=== PATIENT | male | born 1960 | race Caucasian/White ===

== ENCOUNTER 2016-06-07 19:30 | Emergency (ER) | payer BC ==
[~2016-06-07 19:30] MED LIST: BABY81CH; FLUO10TA2; HYDR25TA6; LISI10TA4; NICO21DI4; PROZ10CA; PROZ20CA
[2016-06-07] MEDS ORDERED: KETOROLAC 30 MG/ML VIAL (J1885) As Ordered ONE (20:29)
[2016-06-07 20:46] LABS: BASO % 0.4 % (0.0-1.0); EOS # 0.2 K/mm3 (0.0-0.50); EOS % 1.4 % (0.0-3.0); LARGE UNSTAINED CELL # 0.1 K/mm3 (0.0-0.4); LARGE UNSTAINED CELL % 0.7 % (0.0-4.0); LYMPH # 1.1 K/mm3 (1.5-4.5); LYMPH % 8.5 % (24.0-44.0); MEAN CORPUSCULAR HEMOGLOBIN 29.6 pg (27.0-33.0); MEAN CORPUSCULAR HGB CONC 34.4 g/dl (32.0-36.5); MEAN CORPUSCULAR VOLUME 86.1 fl (80.0-96.0); MONO # 0.3 K/mm3 (0.0-0.8); MONO % 2.5 % (0.0-5.0); NEUTROPHILS # 11.5 K/mm3 (1.8-7.7); NEUTROPHILS % 86.5 % (36.0-66.0); PLATELET COUNT, AUTOMATED 315 k/mm3 (150-450); RED CELL DISTRIBUTION WIDTH 12.4 % (11.5-14.5); WHITE BLOOD COUNT 13.3 K/mm3 (4.0-10.0)
[2016-06-07] MEDS ORDERED: HYDROmorphone HCL 1 MG/ML SYRINGE (J1170) As Ordered ONE (20:58)
[2016-06-07 21:13] LABS: ALBUMIN 4.3 GM/DL (3.2-5.2); ALBUMIN/GLOBULIN RATIO 1.08 (1.00-1.93); ALKALINE PHOSPHATASE 98 U/L (45-117); ALT/SGPT 24 U/L (12-78); AMYLASE 305 U/L (25-115); ANION GAP 7 MEQ/L (8-16); AST/SGOT 7 U/L (15-37); BILIRUBIN,DIRECT 0.1 MG/DL (0.0-0.2); BILIRUBIN,TOTAL 0.6 MG/DL (0.2-1.0); BLOOD UREA NITROGEN 22 MG/DL (7-18); CALCIUM LEVEL 8.7 MG/DL (8.5-10.1); CARBON DIOXIDE LEVEL 27 MEQ/L (21-32); CHLORIDE LEVEL 106 MEQ/L (98-107); CREATININE FOR GFR 1.31 MG/DL (0.70-1.30); GLOMERULAR FILTRATION RATE > 60.0 (>56); GLUCOSE, FASTING 117 MG/DL (70-105); POTASSIUM SERUM 4.1 MEQ/L (3.5-5.1); SODIUM LEVEL 140 MEQ/L (136-145); TOTAL PROTEIN 8.3 GM/DL (6.4-8.2)
[2016-06-07] MEDS ORDERED: ATENOLOL 25 MG TAB As Ordered ONE (21:45)
--- NOTE | 2016-06-07 23:30 | REPUSA ---
CT of the abdomen and pelvis without contrast Clinical statement: Pain. Technique: Multiple axial CT images were obtained from the base of the lungs to the floor of the pelv is utilizing 5 mm axial slices without administration of contrast. Coronal and sagittal reconstructio ns were also obtained. No comparison is available. Findings: Chest: The visualized lung bases are clear. Abdomen: The kidneys are normal in size bilaterally. There is no evidence of hydronephrosis or nephro lithiasis. The liver, spleen, pancreas, gallbladder and adrenal glands are unremarkable. The aorta de monstrates normal caliber and contour. There is no abdominal lymphadenopathy or ascites. Pelvis: The bowel is unremarkable, with no obstructive or inflammatory changes. The appendix is graeme l. The urinary bladder is within normal limits. There is no pelvic lymphadenopathy or ascites. The ot her pelvic structures appear unremarkable. Bones: There are no suspicious osseous abnormalities seen. Impression: Unremarkable CT examination of the abdomen and pelvis.
--- NOTE | 2016-06-08 01:37 | EDDOCDS ---
Physician Documentation [facility] Name: Sathya Presley Age: 56 yrs Sex: Male : 1960 Arrival Date: 06/07/2016 Time: 19:30 Bed I Private MD: Henri Mcintyre [facility] Disposition: 06/08/16 01:18 Discharged to Home/Self Care. Impression: Low back pain. - Condition is Stable. - Prescriptions for Tramadol 50 mg Oral Tablet - take 0.5 tablet by ORAL route 4 times per day MDD: 2 tabs; 10 tablet. - Medication Reconciliation, Local Pharmacy Hours form. - Follow up: Henri Mcintyre; When: Call to arrange an appointment; Reason: Recheck today's complaints. - Problem is new. - Symptoms have improved. Historical: - Allergies: no known allergies; - Home Meds: 1. atenolol 25 mg Oral tab 1 tab once daily - PMHx: Hypertension; - PSHx: skin cancer excision; - Social history: Smoking status: Patient uses tobacco products, heavy tobacco smoker. No barriers to communication noted, The patient speaks fluent [place]. - Family history: Not pertinent. - : The pt / caregiver states he / she is not on anticoagulants. Home medication list is obtained from the patient. - Exposure Risk Screening:: None identified. Vital Signs: 06/07 19:31 BP 237 / 118; Pulse 78; Resp 20 S; Temp 97.5(O); Pulse Ox 98% on R/A; Weight 79.38 kg / dd6 175 lbs (R); Height 5 ft. 8 in. (172.72 cm) (R); 21:00 BP 213 / 104 LA Supine (auto/reg); Pulse 82 MON; Resp 22 S; Temp 99.0(TE); Pulse Ox 98% cln on R/A; Pain 8/10; 21:40 BP 196 / 100; Pulse 77; Resp 16; Pain 1/10; cz 22:49 BP 185 / 88; Pulse 71; Resp 16; Pain 1/10; cz 22:50 BP 185 / 88; Pulse 71; Resp 16; Pain 1/10; cz 06/08 01:33 BP 148 / 72; Pulse 82; Resp 18; Temp 98.3(TE); Pulse Ox 93% on R/A; Pain 0/10; cp1 06/07 19:31 Body Mass Index 26.61 (79.38 kg, 172.72 cm) dd6 MDM: 06/07 20:26 IV Saline Lock ordered. cs11 20:26 NS 0.9% 1000 ml IV at bolus once ordered. cs11 20:26 ketorolac 30 mg IVP once ordered. cs11 20:26 CBC with Diff Ordered. EDMS 20:26 MED Profile Ordered. EDMS 20:26 Liver Profile Ordered. EDMS 20:26 Urinalysis Ordered. EDMS 20:26 Urine Culture Ordered. EDMS 20:26 Lipase Ordered. EDMS 20:26 Amylase Ordered. EDMS 20:57 Dilaudid - HYDROmorphone 1 mg IVP once ordered. jun 07: Financial registration complete. zo 20:58 [facility] Payment Agreement was scanned into [employer] and attached to record. zo 21:43 CBC with Diff Reviewed. cs11 21:43 MED Profile Reviewed. cs11 21:43 Liver Profile Reviewed. cs11 21:43 Urinalysis Reviewed. cs11 21:43 Amylase Reviewed. cs11 21:43 Lipase Reviewed. cs11 21:44 Atenolol 25 mg PO once ordered. cs11 21:46 CT ABD & PELVIS: No Contrast Ordered. EDMS 06/08 01:15 CT ABD & PELVIS: No Contrast Reviewed. cs11 Administered Medications: 06/07 20:39 Drug: ketorolac 30 mg [ketorolac 30 mg/mL (1 mL) injection solution (1 mL)] Route: IVP; cz Site: right antecubital; 06/08 01:36 Follow up: Response: Pain is decreased [facility] 06/07 20:41 Drug: NS 0.9% 1000 ml [sodium chloride 0.9 % intravenous solution] Route: IV; Rate: cz bolus; Site: right antecubital; 06/08 01:36 Follow up: IV Status: Completed infusion [facility] 06/07 21:00 Drug: Dilaudid - HYDROmorphone 1 mg [hydromorphone 1 mg/mL injection syringe (1 mL)] cz Route: IVP; Site: right forearm; 21:40 Follow up: BP 196 / 100; Pulse 77 bpm; Resp 16 bpm; Pain 1/10 Adult cz 21:48 Drug: Atenolol 25 mg [atenolol 25 mg tablet (1 tabs)] Route: PO; cz 22:49 Follow up: BP 185 / 88; Pulse 71 bpm; Resp 16 bpm; Pain 05/28 Adult cz 06/08 01:36 Follow up: Response: Blood pressure is improved cp1 Signatures: Dispatcher [employer] EDMS Madsiyn Funes RN RN jan Zecher, Calvin, RN RN cz Olin, Zoeann zo Soosairaj, Rosemary, RN RN rs3 Olesya Lemus LPN LPN cp1 Judah Munguia DO DO cs11 The chart was reviewed and I authenticate all verbal orders and agree with the evaluation and treatment provided.Attachments: 06/07 20:58 [facility] Payment Agreement zo MTDD
--- NOTE | 2016-06-08 01:37 | EDDOCDS ---
Nurse's Notes [facility] Name: Sathya Presley Age: 56 yrs Sex: Male : 1960 Arrival Date: 06/07/2016 Time: 19:30 Bed I9 / 22 Private MD: Henri Mcintyre NCFM Diagnosis: Low back pain Presentation: 06/07 19:33 Presenting complaint: Patient states: bilateral flank pain, nausea since this rs3 afternoon. Acute neurological deficits are not present. Mechanism of Injury: No Mechanism of Injury. Adult Sepsis Screening: The patient does not have new or worsening altered mentation. Patient's respiratory rate is less than 22. Systolic blood pressure is greater than 100. Patient has a qSOFA score of 0- Negative Sepsis Screen. Suicide/Homicide risk assessment- the patient denies having any suicidal and/or homicidal ideations and does not present with any other emotional, behavioral or mental health complaints. 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 Transition of care: patient was not received from another setting of care. 19:33 Acuity: EDU Level 3 rs3 19:33 Method Of Arrival: Walkin/Carried/Asstd rs3 Triage Assessment: 19:35 General: Appears uncomfortable. Pain: Location: left low back and right low back. Pt rs3 Declines HIV testing. Musculoskeletal: Reports Pain is 10 out of 10 on a pain scale. Historical: - Allergies: no known allergies; - Home Meds: 1. atenolol 25 mg Oral tab 1 tab once daily - PMHx: Hypertension; - PSHx: skin cancer excision; - Social history: Smoking status: Patient uses tobacco products, heavy tobacco smoker. No barriers to communication noted, The patient speaks fluent Armenian. - Family history: Not pertinent. - : The pt / caregiver states he / she is not on anticoagulants. Home medication list is obtained from the patient. - Exposure Risk Screening:: None identified. Screenin:41 Screening information is obtained from the patient. Fall risk: No risks identified. cz Assistance ADL's: requires no assistance with activities of daily living. Abuse/DV Screen: The patient / caregiver reports he/she is: not in a situation that causes fear, pain or injury. Nutritional screening: No deficits noted. home support is adequate. 06/08 01:35 Advance Directives: Unable to assess Advance Directive status due to pt condition. cp1 Assessment: 06/07 20:41 General: alert male with bilateral flank pain nausea and vomiting. GI: Abdomen is flat, cz non- distended Bowel sounds present X 4 quads. Abd is soft X 4 quads. 21:04 Reassessment: pain continues at a 7-8/10 provider aware order received. cz 21:40 Reassessment: Patient states symptoms have improved. pt states pain much better. cz 22:18 Adult Sepsis Screening: The patient does not have new or worsening altered mentation. cz Patient's respiratory rate is less than 22. Systolic blood pressure is greater than 100. Patient has a qSOFA score of 0- Negative Sepsis Screen. 22:50 Reassessment: Patient appears in no apparent distress at this time. Patient states cz symptoms have improved. 23:26 General: Appears in no apparent distress, comfortable, Behavior is appropriate for age, jmb cooperative, Patient laying on stretcher, appears comfortable. No voiced complaints at this time. . Neurological: Level of Consciousness is awake, alert, obeys commands, Oriented to person, place, time, Speech is normal. Respiratory: Airway is patent Respiratory effort is even, unlabored, Respiratory pattern is regular, symmetrical. 06/08 00:00 General: Appears in no apparent distress, comfortable, Behavior is appropriate for age, jmb cooperative. Neurological: Level of Consciousness is awake, alert, obeys commands, Oriented to person, place, time. Respiratory: Airway is patent Respiratory effort is even, unlabored, Respiratory pattern is regular, symmetrical. Vital Signs: 06/07 19:31 BP 237 / 118; Pulse 78; Resp 20 S; Temp 97.5(O); Pulse Ox 98% on R/A; Weight 79.38 kg dd6 (R); Height 5 ft. 8 in. (172.72 cm) (R); 21:00 BP 213 / 104 LA Supine (auto/reg); Pulse 82 MON; Resp 22 S; Temp 99.0(TE); Pulse Ox 98% cln on R/A; Pain 8/10; 21:40 BP 196 / 100; Pulse 77; Resp 16; Pain 1/10; cz 22:49 BP 185 / 88; Pulse 71; Resp 16; Pain 1/10; cz 22:50 BP 185 / 88; Pulse 71; Resp 16; Pain 1/10; cz 06/08 01:33 BP 148 / 72; Pulse 82; Resp 18; Temp 98.3(TE); Pulse Ox 93% on R/A; Pain 0/10; cp1 06/07 19:31 Body Mass Index 26.61 (79.38 kg, 172.72 cm) dd6 Vitals: 06/07 19:31 Log In Time: June 07, 2016 at 19:29. dd6 ED Course: 19:31 Patient visited by Rui Olivo PCA. dd6 19:31 Henri Mcintyre is Private Physician. dd6 19:31 Patient moved to Waiting dd6 19:33 Patient moved to Pre RCE dd6 19:34 Triage Initiated rs3 19:38 Patient moved to I kmg1 20:24 Judah Munguia DO is Attending Physician. cs11 20:24 Patient visited by Judah Munguia DO. cs11 20:40 Patient visited by Olesya Lemus LPN. cp1 20:40 Amylase Sent. cp1 20:40 Lipase Sent. cp1 20:40 Urine Culture Sent. cp1 20:40 Urinalysis Sent. cp1 20:40 Liver Profile Sent. cp1 20:40 MED Profile Sent. cp1 20:40 CBC with Diff Sent. cp1 20:41 The patient / caregiver is instructed regarding the plan of care and ED course. cz 20:41 Inserted saline lock: 20 gauge in right antecubital area. No procedures done that cz require assistance. 20:58 [facility] Payment Agreement was scanned into Wik[employer] and attached to record. zo 21:01 Patient visited by Paty Nixon PCA. cln 21:48 Patient visited by Olesya Lemus LPN. cp1 22:19 Patient visited by Prateek Boyd RN. cz 22:49 Patient visited by Olesya Lemus LPN. cp1 23:27 Patient visited by Alistair John,JOANNE. brannonb 06/08 00:01 Patient visited by Alistair John RN. jmb 00:19 CT ABD & PELVIS: No Contrast Returned. EDMS 00:39 Patient visited by Olesya Lemus LPN. cp1 01:18 Henri Mcintyre is Referral Physician. cs11 01:35 Discontinued lock bleeding controlled, pressure dressing applied. cp1 Administered Medications: 06/07 20:39 Drug: ketorolac 30 mg [ketorolac 30 mg/mL (1 mL) injection solution (1 mL)] Route: IVP; cz Site: right antecubital; 06/08 01:36 Follow up: Response: Pain is decreased cp1 06/07 20:41 Drug: NS 0.9% 1000 ml [sodium chloride 0.9 % intravenous solution] Route: IV; Rate: cz bolus; Site: right antecubital; 06/08 01:36 Follow up: IV Status: Completed infusion cp1 06/07 21:00 Drug: Dilaudid - HYDROmorphone 1 mg [hydromorphone 1 mg/mL injection syringe (1 mL)] cz Route: IVP; Site: right forearm; 21:40 Follow up: BP 196 / 100; Pulse 77 bpm; Resp 16 bpm; Pain 05/28 Adult cz 21:48 Drug: Atenolol 25 mg [atenolol 25 mg tablet (1 tabs)] Route: PO; cz 22:49 Follow up: BP 185 / 88; Pulse 71 bpm; Resp 16 bpm; Pain 05/28 Adult cz 06/08 01:36 Follow up: Response: Blood pressure is improved cp1 Order Results: Lab Order: CBC with Diff; SPEC'M 06/07/16 20:32 Test: WHITE BLOOD COUNT; Value: 13.3; Range: 4.0-10.0; Abnormal: Above high normal; Units: K/mm3; Status: F Test: RED BLOOD COUNT; Value: 5.25; Range: 4.30-6.10; Units: M/mm3; Status: F Test: HEMOGLOBIN; Value: 15.6; Range: 14.0-18.0; Units: g/dl; Status: F Test: HEMATOCRIT; Value: 45.2; Range: 42.0-52.0; Units: %; Status: F Test: MEAN CORPUSCULAR VOLUME; Value: 86.1; Range: 80.0-96.0; Units: fl; Status: F Test: MEAN CORPUSCULAR HEMOGLOBIN; Value: 29.6; Range: 27.0-33.0; Units: pg; Status: F Test: MEAN CORPUSCULAR HGB CONC; Value: 34.4; Range: 32.0-36.5; Units: g/dl; Status: F Test: RED CELL DISTRIBUTION WIDTH; Value: 12.4; Range: 11.5-14.5; Units: %; Status: F Test: PLATELET COUNT, AUTOMATED; Value: 315; Range: 150-450; Units: k/mm3; Status: F Test: NEUTROPHILS %; Value: 86.5; Range: 36.0-66.0; Abnormal: Above high normal; Units: %; Status: F Test: LYMPH %; Value: 8.5; Range: 24.0-44.0; Abnormal: Below low normal; Units: %; Status: F Test: MONO %; Value: 2.5; Range: 0.0-5.0; Units: %; Status: F Test: EOS %; Value: 1.4; Range: 0.0-3.0; Units: %; Status: F Test: BASO %; Value: 0.4; Range: 0.0-1.0; Units: %; Status: F Test: LARGE UNSTAINED CELL %; Value: 0.7; Range: 0.0-4.0; Units: %; Status: F Test: NEUTROPHILS #; Value: 11.5; Range: 1.8-7.7; Abnormal: Above high normal; Units: K/mm3; Status: F Test: LYMPH #; Value: 1.1; Range: 1.5-4.5; Abnormal: Below low normal; Units: K/mm3; Status: F Test: MONO #; Value: 0.3; Range: 0.0-0.8; Units: K/mm3; Status: F Test: EOS #; Value: 0.2; Range: 0.0-0.50; Units: K/mm3; Status: F Test: BASO #; Value: 0.0; Range: 0.0-0.2; Units: K/mm3; Status: F Test: LARGE UNSTAINED CELL #; Value: 0.1; Range: 0.0-0.4; Units: K/mm3; Status: F Lab Order: MED Profile; SPEC'M 06/07/16 20:32 Test: GLUCOSE, FASTING; Value: 117; Range: 70-105; Abnormal: Above high normal; Units: MG/DL; Status: F Test: BLOOD UREA NITROGEN; Value: 22; Range: 7-18; Abnormal: Above high normal; Units: MG/DL; Status: F Test: CREATININE FOR GFR; Value: 1.31; Range: 0.70-1.30; Abnormal: Above high normal; Units: MG/DL; Status: F Test: GLOMERULAR FILTRATION RATE; Value: > 60.0; Range: >56; Status: F Test: SODIUM LEVEL; Value: 140; Range: 136-145; Units: MEQ/L; Status: F Test: POTASSIUM SERUM; Value: 4.1; Range: 3.5-5.1; Units: MEQ/L; Status: F Test: CHLORIDE LEVEL; Value: 106; Range: 98-107; Units: MEQ/L; Status: F Test: CARBON DIOXIDE LEVEL; Value: 27; Range: 21-32; Units: MEQ/L; Status: F Test: ANION GAP; Value: 7; Range: 8-16; Abnormal: Below low normal; Units: MEQ/L; Status: F Test: CALCIUM LEVEL; Value: 8.7; Range: 8.5-10.1; Units: MG/DL; Status: F Test Note: ; Units are mL/min/1.73 m2 Chronic Kidney Disease Staging per NKF: Stage I & II GFR >=60 Normal to Mildly Decreased Stage III GFR 30-59 Moderately Decreased Stage IV GFR 15-29 Severely Decreased Stage V GFR <15 Very Little GFR Left ESRD GFR <15 on [facility] Lab Order: Liver Profile; [facility] 06/07/16 20:32 Test: AST/SGOT; Value: 7; Range: 15-37; Abnormal: Below low normal; Units: U/L; Status: F Test: ALT/SGPT; Value: 24; Range: 12-78; Units: U/L; Status: F Test: ALKALINE PHOSPHATASE; Value: 98; Range: 45-117; Units: U/L; Status: F Test: BILIRUBIN,TOTAL; Value: 0.6; Range: 0.2-1.0; Units: MG/DL; Status: F Test: BILIRUBIN,DIRECT; Value: 0.1; Range: 0.0-0.2; Units: MG/DL; Status: F Test: TOTAL PROTEIN; Value: 8.3; Range: 6.4-8.2; Abnormal: Above high normal; Units: GM/DL; Status: F Test: ALBUMIN; Value: 4.3; Range: 3.2-5.2; Units: GM/DL; Status: F Test: ALBUMIN/GLOBULIN RATIO; Value: 1.08; Range: 1.00-1.93; Status: F Lab Order: Urinalysis; SPEC'M 06/07/16 20:32 Test: APPEARANCE, URINE; Value: CLEAR; Range: CLEAR; Status: F Test: COLOR, URINE; Value: STRAW; Range: YELLOW; Status: F Test: PH,URINE; Value: 7.0; Range: 5.0-9.0; Units: UNITS; Status: F Test: SPECIFIC GRAVITY URINE AUTO; Value: 1.016; Range: 1.002-1.035; Status: F Test: PROTEIN, URINE AUTO; Value: 2+; Range: NEGATIVE; Abnormal: Above high normal; Units: mg/dL; Status: F Test: GLUCOSE, URINE (UA) AUTO; Value: NEGATIVE; Range: NEGATIVE; Units: mg/dL; Status: F Test: KETONE, URINE AUTO; Value: NEGATIVE; Range: NEGATIVE; Units: mg/dL; Status: F Test: UROBILINOGEN, URINE AUTO; Value: 0.2; Range: 0.0-2.0; Units: mg/dL; Status: F Test: BILIRUBIN, URINE AUTO; Value: NEGATIVE; Range: NEGATIVE; Status: F Test: NITRITE, URINE AUTO; Value: NEGATIVE; Range: NEGATIVE; Status: F Test: LEUKOCYTE ESTERASE, URINE AUTO; Value: NEGATIVE; Range: NEGATIVE; Status: F Test: BLOOD, URINE BLOOD; Value: 1+; Range: NEGATIVE; Abnormal: Above high normal; Status: F Test: WBC, URINE AUTO; Value: 1; Range: 0-3; Units: /HPF; Status: F Test: RBC, URINE AUTO; Value: 17; Range: 0-3; Abnormal: Above high normal; Units: /HPF; Status: F Test: BACTERIA, URINE AUTO; Value: NEGATIVE; Range: NEGATIVE; Status: F Test: SQUAMOUS EPITHELIAL CELL UR AU; Value: 0; Range: 0-6; Units: /HPF; Status: F Test: MUCUS, URINE; Value: SMALL; Range: NEGATIVE; Status: F Test: HYALINE CAST, URINE AUTO; Value: 0; Range: 0-1; Units: /LPF; Status: F Lab Order: Lipase; SPEC'M 06/07/16 20:32 Test: LIPASE; Value: 152; Range: 73-393; Units: U/L; Status: F Lab Order: Amylase; SPEC'M 06/07/16 20:32 Test: AMYLASE; Value: 305; Range: 25-115; Abnormal: Above high normal; Units: U/L; Status: F Radiology Order: CT ABD & PELVIS: No Contrast Test: CT ABD & PELVIS: No Contrast REASON FOR EXAMINATION: Renal colic; ; CT of the abdomen and pelvis without contrast; Clinical statement: Pain.; Technique: Multiple axial CT images were obtained from the base of the lungs to the floor of the pelv; is utilizing 5 mm axial slices without administration of contrast. Coronal and sagittal reconstructio; ns were also obtained.; No comparison is available.; Findings:; Chest: The visualized lung bases are clear.; Abdomen: The kidneys are normal in size bilaterally. There is no evidence of hydronephrosis or nephro; lithiasis. The liver, spleen, pancreas, gallbladder and adrenal glands are unremarkable. The aorta de; monstrates normal caliber and contour. There is no abdominal lymphadenopathy or ascites.; Pelvis: The bowel is unremarkable, with no obstructive or inflammatory changes. The appendix is graeme; l. The urinary bladder is within normal limits. There is no pelvic lymphadenopathy or ascites. The ot; her pelvic structures appear unremarkable.; Bones: There are no suspicious osseous abnormalities seen.; Impression: Unremarkable CT examination of the abdomen and pelvis.; ; Outcome: 01:18 Discharge ordered by Provider. cs11 01:35 Discharge Assessment: Patient awake, alert and oriented x 3. No cognitive and/or cp1 functional deficits noted. Patient verbalized understanding of disposition instructions. patient administered narcotics - yes. Pt provided with safe discharge. The following High Risk Discharge criteria are identified: None. Discharged to home ambulatory, with family. Condition: good Condition: stable Condition: improved. Discharge instructions given to patient, Instructed on discharge instructions, follow up and referral plans. medication usage, no driving heavy equipment, Demonstrated understanding of instructions, medications, Pt was receptive of discharge instructions/ teaching. Prescriptions given X 1. CT Study completed. Property sent home with patient. :Personal belongings accompany Pt. 01:36 Patient left the ED. cp1 Signatures: Dispatcher [employer] EDAntonia Wilson, RN RN kmg1 Prateek Boyd, RN RN cz Alexa Greenberg Daniell, DRIP PUMPER DRIP PUMPER dd6 Valencia Armendariz RN RN rs3 Olesya Lemus,CULINARY CHEF CULINARY CHEF cp1 Judah Munguia, DO cs11 Alistair JohnRN RN jmb Hussain, Paty, DRIP PUMPER DRIP PUMPER cln MTDD
--- NOTE | 2016-06-10 02:37 | EDDOCDS ---
Nurse's Notes [facility] Name: Sathya Presley Age: 56 yrs Sex: Male : 1960 Arrival Date: 06/07/2016 Time: 19:30 Bed I9 / 22 Private MD: Henri Mcintyre NCFM Diagnosis: Low back pain Presentation: 06/07 19:33 Presenting complaint: Patient states: bilateral flank pain, nausea since this rs3 afternoon. Acute neurological deficits are not present. Mechanism of Injury: No Mechanism of Injury. Adult Sepsis Screening: The patient does not have new or worsening altered mentation. Patient's respiratory rate is less than 22. Systolic blood pressure is greater than 100. Patient has a qSOFA score of 0- Negative Sepsis Screen. Suicide/Homicide risk assessment- the patient denies having any suicidal and/or homicidal ideations and does not present with any other emotional, behavioral or mental health complaints. Status: Patient is not a government services professional or dependent. Transition of care: patient was not received from another setting of care. 19:33 Acuity: EDU Level 3 rs3 19:33 Method Of Arrival: Walkin/Carried/Asstd rs3 Triage Assessment: 19:35 General: Appears uncomfortable. Pain: Location: left low back and right low back. Pt rs3 Declines HIV testing. Musculoskeletal: Reports Pain is 10 out of 10 on a pain scale. Historical: - Allergies: no known allergies; - Home Meds: 1. atenolol 25 mg Oral tab 1 tab once daily - PMHx: Hypertension; - PSHx: skin cancer excision; - Social history: Smoking status: Patient uses tobacco products, heavy tobacco smoker. No barriers to communication noted, The patient speaks fluent Yi. - Family history: Not pertinent. - : The pt / caregiver states he / she is not on anticoagulants. Home medication list is obtained from the patient. - Exposure Risk Screening:: None identified. Screenin:41 Screening information is obtained from the patient. Fall risk: No risks identified. cz Assistance ADL's: requires no assistance with activities of daily living. Abuse/DV Screen: The patient / caregiver reports he/she is: not in a situation that causes fear, pain or injury. Nutritional screening: No deficits noted. home support is adequate. 06/08 01:35 Advance Directives: Unable to assess Advance Directive status due to pt condition. cp1 Assessment: 06/07 20:41 General: alert male with bilateral flank pain nausea and vomiting. GI: Abdomen is flat, cz non- distended Bowel sounds present X 4 quads. Abd is soft X 4 quads. 21:04 Reassessment: pain continues at a 7-8/10 provider aware order received. cz 21:40 Reassessment: Patient states symptoms have improved. pt states pain much better. cz 22:18 Adult Sepsis Screening: The patient does not have new or worsening altered mentation. cz Patient's respiratory rate is less than 22. Systolic blood pressure is greater than 100. Patient has a qSOFA score of 0- Negative Sepsis Screen. 22:50 Reassessment: Patient appears in no apparent distress at this time. Patient states cz symptoms have improved. 23:26 General: Appears in no apparent distress, comfortable, Behavior is appropriate for age, jmb cooperative, Patient laying on stretcher, appears comfortable. No voiced complaints at this time. . Neurological: Level of Consciousness is awake, alert, obeys commands, Oriented to person, place, time, Speech is normal. Respiratory: Airway is patent Respiratory effort is even, unlabored, Respiratory pattern is regular, symmetrical. 06/08 00:00 General: Appears in no apparent distress, comfortable, Behavior is appropriate for age, jmb cooperative. Neurological: Level of Consciousness is awake, alert, obeys commands, Oriented to person, place, time. Respiratory: Airway is patent Respiratory effort is even, unlabored, Respiratory pattern is regular, symmetrical. Vital Signs: 06/07 19:31 BP 237 / 118; Pulse 78; Resp 20 S; Temp 97.5(O); Pulse Ox 98% on R/A; Weight 79.38 kg dd6 (R); Height 5 ft. 8 in. (172.72 cm) (R); 21:00 BP 213 / 104 LA Supine (auto/reg); Pulse 82 MON; Resp 22 S; Temp 99.0(TE); Pulse Ox 98% cln on R/A; Pain 8/10; 21:40 BP 196 / 100; Pulse 77; Resp 16; Pain 1/10; cz 22:49 BP 185 / 88; Pulse 71; Resp 16; Pain 1/10; cz 22:50 BP 185 / 88; Pulse 71; Resp 16; Pain 1/10; cz 06/08 01:33 BP 148 / 72; Pulse 82; Resp 18; Temp 98.3(TE); Pulse Ox 93% on R/A; Pain 0/10; cp1 06/07 19:31 Body Mass Index 26.61 (79.38 kg, 172.72 cm) dd6 Vitals: 06/07 19:31 Log In Time: June 07, 2016 at 19:29. dd6 ED Course: 19:31 Patient visited by Rui Olivo PCA. dd6 19:31 Henri Mcintyre is Private Physician. dd6 19:31 Patient moved to Waiting dd6 19:33 Patient moved to Pre RCE dd6 19:34 Triage Initiated rs3 19:38 Patient moved to I kmg1 20:24 Judah Munguia DO is Attending Physician. cs11 20:24 Patient visited by Judah Munguia DO. cs11 20:40 Patient visited by Olesya Lemus LPN. cp1 20:40 Amylase Sent. cp1 20:40 Lipase Sent. cp1 20:40 Urine Culture Sent. cp1 20:40 Urinalysis Sent. cp1 20:40 Liver Profile Sent. cp1 20:40 MED Profile Sent. cp1 20:40 CBC with Diff Sent. cp1 20:41 The patient / caregiver is instructed regarding the plan of care and ED course. cz 20:41 Inserted saline lock: 20 gauge in right antecubital area. No procedures done that cz require assistance. 20:58 [facility] Payment Agreement was scanned into [employer] and attached to record. zo 21:01 Patient visited by Paty Nixon PCA. cln 21:48 Patient visited by Olesya Lemus LPN. cp1 22:19 Patient visited by Prateek Boyd RN. cz 22:49 Patient visited by Olesya Lemus LPN. cp1 23:27 Patient visited by Alistair John,JOANNE. brannonb 06/08 00:01 Patient visited by Alistair John RN. jmb 00:19 CT ABD & PELVIS: No Contrast Returned. EDMS 00:39 Patient visited by Olesya Lemus LPN. cp1 01:18 Henri Mcintyre is Referral Physician. cs11 01:35 Discontinued lock bleeding controlled, pressure dressing applied. cp1 12:03 T-Sheet-- Draft Copy was scanned into [employer] and attached to record. gb 12:03 Radiology Report was scanned into [employer] and attached to record. gb Administered Medications: 06/07 20:39 Drug: ketorolac 30 mg [ketorolac 30 mg/mL (1 mL) injection solution (1 mL)] Route: IVP; cz Site: right antecubital; 06/08 01:36 Follow up: Response: Pain is decreased cp1 06/07 20:41 Drug: NS 0.9% 1000 ml [sodium chloride 0.9 % intravenous solution] Route: IV; Rate: cz bolus; Site: right antecubital; 06/08 01:36 Follow up: IV Status: Completed infusion 1 06/07 21:00 Drug: Dilaudid - HYDROmorphone 1 mg [hydromorphone 1 mg/mL injection syringe (1 mL)] cz Route: IVP; Site: right forearm; 21:40 Follow up: BP 196 / 100; Pulse 77 bpm; Resp 16 bpm; Pain 05/28 Adult cz 21:48 Drug: Atenolol 25 mg [atenolol 25 mg tablet (1 tabs)] Route: PO; cz 22:49 Follow up: BP 185 / 88; Pulse 71 bpm; Resp 16 bpm; Pain 05/28 Adult cz 06/08 01:36 Follow up: Response: Blood pressure is improved [facility] Order Results: Lab Order: CBC with Diff; SPEC'M 06/07/16 20:32 Test: WHITE BLOOD COUNT; Value: 13.3; Range: 4.0-10.0; Abnormal: Above high normal; Units: K/mm3; Status: F Test: RED BLOOD COUNT; Value: 5.25; Range: 4.30-6.10; Units: M/mm3; Status: F Test: HEMOGLOBIN; Value: 15.6; Range: 14.0-18.0; Units: g/dl; Status: F Test: HEMATOCRIT; Value: 45.2; Range: 42.0-52.0; Units: %; Status: F Test: MEAN CORPUSCULAR VOLUME; Value: 86.1; Range: 80.0-96.0; Units: fl; Status: F Test: MEAN CORPUSCULAR HEMOGLOBIN; Value: 29.6; Range: 27.0-33.0; Units: pg; Status: F Test: MEAN CORPUSCULAR HGB CONC; Value: 34.4; Range: 32.0-36.5; Units: g/dl; Status: F Test: RED CELL DISTRIBUTION WIDTH; Value: 12.4; Range: 11.5-14.5; Units: %; Status: F Test: PLATELET COUNT, AUTOMATED; Value: 315; Range: 150-450; Units: k/mm3; Status: F Test: NEUTROPHILS %; Value: 86.5; Range: 36.0-66.0; Abnormal: Above high normal; Units: %; Status: F Test: LYMPH %; Value: 8.5; Range: 24.0-44.0; Abnormal: Below low normal; Units: %; Status: F Test: MONO %; Value: 2.5; Range: 0.0-5.0; Units: %; Status: F Test: EOS %; Value: 1.4; Range: 0.0-3.0; Units: %; Status: F Test: BASO %; Value: 0.4; Range: 0.0-1.0; Units: %; Status: F Test: LARGE UNSTAINED CELL %; Value: 0.7; Range: 0.0-4.0; Units: %; Status: F Test: NEUTROPHILS #; Value: 11.5; Range: 1.8-7.7; Abnormal: Above high normal; Units: K/mm3; Status: F Test: LYMPH #; Value: 1.1; Range: 1.5-4.5; Abnormal: Below low normal; Units: K/mm3; Status: F Test: MONO #; Value: 0.3; Range: 0.0-0.8; Units: K/mm3; Status: F Test: EOS #; Value: 0.2; Range: 0.0-0.50; Units: K/mm3; Status: F Test: BASO #; Value: 0.0; Range: 0.0-0.2; Units: K/mm3; Status: F Test: LARGE UNSTAINED CELL #; Value: 0.1; Range: 0.0-0.4; Units: K/mm3; Status: F Lab Order: MED Profile; SPEC'M 06/07/16 20:32 Test: GLUCOSE, FASTING; Value: 117; Range: 70-105; Abnormal: Above high normal; Units: MG/DL; Status: F Test: BLOOD UREA NITROGEN; Value: 22; Range: 7-18; Abnormal: Above high normal; Units: MG/DL; Status: F Test: CREATININE FOR GFR; Value: 1.31; Range: 0.70-1.30; Abnormal: Above high normal; Units: MG/DL; Status: F Test: GLOMERULAR FILTRATION RATE; Value: > 60.0; Range: >56; Status: F Test: SODIUM LEVEL; Value: 140; Range: 136-145; Units: MEQ/L; Status: F Test: POTASSIUM SERUM; Value: 4.1; Range: 3.5-5.1; Units: MEQ/L; Status: F Test: CHLORIDE LEVEL; Value: 106; Range: 98-107; Units: MEQ/L; Status: F Test: CARBON DIOXIDE LEVEL; Value: 27; Range: 21-32; Units: MEQ/L; Status: F Test: ANION GAP; Value: 7; Range: 8-16; Abnormal: Below low normal; Units: MEQ/L; Status: F Test: CALCIUM LEVEL; Value: 8.7; Range: 8.5-10.1; Units: MG/DL; Status: F Test Note: ; Units are mL/min/1.73 m2 Chronic Kidney Disease Staging per NKF: Stage I & II GFR >=60 Normal to Mildly Decreased Stage III GFR 30-59 Moderately Decreased Stage IV GFR 15-29 Severely Decreased Stage V GFR <15 Very Little GFR Left ESRD GFR <15 on GAS METER REPAIRER Lab Order: Liver Profile; [facility] 06/07/16 20:32 Test: AST/SGOT; Value: 7; Range: 15-37; Abnormal: Below low normal; Units: U/L; Status: F Test: ALT/SGPT; Value: 24; Range: 12-78; Units: U/L; Status: F Test: ALKALINE PHOSPHATASE; Value: 98; Range: 45-117; Units: U/L; Status: F Test: BILIRUBIN,TOTAL; Value: 0.6; Range: 0.2-1.0; Units: MG/DL; Status: F Test: BILIRUBIN,DIRECT; Value: 0.1; Range: 0.0-0.2; Units: MG/DL; Status: F Test: TOTAL PROTEIN; Value: 8.3; Range: 6.4-8.2; Abnormal: Above high normal; Units: GM/DL; Status: F Test: ALBUMIN; Value: 4.3; Range: 3.2-5.2; Units: GM/DL; Status: F Test: ALBUMIN/GLOBULIN RATIO; Value: 1.08; Range: 1.00-1.93; Status: F Lab Order: Urinalysis; SPEC'M 06/07/16 20:32 Test: APPEARANCE, URINE; Value: CLEAR; Range: CLEAR; Status: F Test: COLOR, URINE; Value: STRAW; Range: YELLOW; Status: F Test: PH,URINE; Value: 7.0; Range: 5.0-9.0; Units: UNITS; Status: F Test: SPECIFIC GRAVITY URINE AUTO; Value: 1.016; Range: 1.002-1.035; Status: F Test: PROTEIN, URINE AUTO; Value: 2+; Range: NEGATIVE; Abnormal: Above high normal; Units: mg/dL; Status: F Test: GLUCOSE, URINE (UA) AUTO; Value: NEGATIVE; Range: NEGATIVE; Units: mg/dL; Status: F Test: KETONE, URINE AUTO; Value: NEGATIVE; Range: NEGATIVE; Units: mg/dL; Status: F Test: UROBILINOGEN, URINE AUTO; Value: 0.2; Range: 0.0-2.0; Units: mg/dL; Status: F Test: BILIRUBIN, URINE AUTO; Value: NEGATIVE; Range: NEGATIVE; Status: F Test: NITRITE, URINE AUTO; Value: NEGATIVE; Range: NEGATIVE; Status: F Test: LEUKOCYTE ESTERASE, URINE AUTO; Value: NEGATIVE; Range: NEGATIVE; Status: F Test: BLOOD, URINE BLOOD; Value: 1+; Range: NEGATIVE; Abnormal: Above high normal; Status: F Test: WBC, URINE AUTO; Value: 1; Range: 0-3; Units: /HPF; Status: F Test: RBC, URINE AUTO; Value: 17; Range: 0-3; Abnormal: Above high normal; Units: /HPF; Status: F Test: BACTERIA, URINE AUTO; Value: NEGATIVE; Range: NEGATIVE; Status: F Test: SQUAMOUS EPITHELIAL CELL UR AU; Value: 0; Range: 0-6; Units: /HPF; Status: F Test: MUCUS, URINE; Value: SMALL; Range: NEGATIVE; Status: F Test: HYALINE CAST, URINE AUTO; Value: 0; Range: 0-1; Units: /LPF; Status: F Lab Order: Urine Culture; SPEC'M 06/07/16 20:32 Test: URINE CULTURE; Value: URINE CULTURE RESULT NO GROWTH CLINICAL SIGNIFICANCE 1 ORGANISM; Status: F Lab Order: Lipase; SPEC'M 06/07/16 20:32 Test: LIPASE; Value: 152; Range: 73-393; Units: U/L; Status: F Lab Order: Amylase; SPEC'M 06/07/16 20:32 Test: AMYLASE; Value: 305; Range: 25-115; Abnormal: Above high normal; Units: U/L; Status: F Radiology Order: CT ABD & PELVIS: No Contrast Test: CT ABD & PELVIS: No Contrast REASON FOR EXAMINATION: Renal colic; ; CT of the abdomen and pelvis without contrast; Clinical statement: Pain.; Technique: Multiple axial CT images were obtained from the base of the lungs to the floor of the pelv; is utilizing 5 mm axial slices without administration of contrast. Coronal and sagittal reconstructio; ns were also obtained.; No comparison is available.; Findings:; Chest: The visualized lung bases are clear.; Abdomen: The kidneys are normal in size bilaterally. There is no evidence of hydronephrosis or nephro; lithiasis. The liver, spleen, pancreas, gallbladder and adrenal glands are unremarkable. The aorta de; monstrates normal caliber and contour. There is no abdominal lymphadenopathy or ascites.; Pelvis: The bowel is unremarkable, with no obstructive or inflammatory changes. The appendix is graeme; l. The urinary bladder is within normal limits. There is no pelvic lymphadenopathy or ascites. The ot; her pelvic structures appear unremarkable.; Bones: There are no suspicious osseous abnormalities seen.; Impression: Unremarkable CT examination of the abdomen and pelvis.; ; Outcome: 01:18 Discharge ordered by Provider. cs11 01:35 Discharge Assessment: Patient awake, alert and oriented x 3. No cognitive and/or cp1 functional deficits noted. Patient verbalized understanding of disposition instructions. patient administered narcotics - yes. Pt provided with safe discharge. The following High Risk Discharge criteria are identified: None. Discharged to home ambulatory, with family. Condition: good Condition: stable Condition: improved. Discharge instructions given to patient, Instructed on discharge instructions, follow up and referral plans. medication usage, no driving heavy equipment, Demonstrated understanding of instructions, medications, Pt was receptive of discharge instructions/ teaching. Prescriptions given X 1. CT Study completed. Property sent home with patient. :Personal belongings accompany Pt. 01:36 Patient left the ED. cp1 Signatures: Dispatcher [employer] EDMS Antonia Infante, RN RN kmg1 Prateek Boyd, RN RN cz Apurva Hidalgo, Reg Reg gb Alexa Greenberg zo Rui Olivo, PLUMBING HARDWARE ASSEMBLER PLUMBING HARDWARE ASSEMBLER dd6 Valencia Armendariz,RN RN rs3 Olesya Lemus,LOAN INTERVIEWER LOAN INTERVIEWER cp1 Judah Munguia, DO cs11 Alistair John,RN RN Paty Braxton, PLUMBING HARDWARE ASSEMBLER PLUMBING HARDWARE ASSEMBLER cln Chart Complete MTDRavi
--- NOTE | 2016-06-10 02:37 | EDDOCDS ---
Physician Documentation [facility] Name: Sathya Presley Age: 56 yrs Sex: Male : 1960 Arrival Date: 06/07/2016 Time: 19:30 Bed I Private MD: Henri Mcintyre [facility] Disposition: 06/08/16 01:18 Discharged to Home/Self Care. Impression: Low back pain. - Condition is Stable. - Prescriptions for Tramadol 50 mg Oral Tablet - take 0.5 tablet by ORAL route 4 times per day MDD: 2 tabs; 10 tablet. - Medication Reconciliation, Local Pharmacy Hours form. - Follow up: Henri Mcintyre; When: Call to arrange an appointment; Reason: Recheck today's complaints. - Problem is new. - Symptoms have improved. Historical: - Allergies: no known allergies; - Home Meds: 1. atenolol 25 mg Oral tab 1 tab once daily - PMHx: Hypertension; - PSHx: skin cancer excision; - Social history: Smoking status: Patient uses tobacco products, heavy tobacco smoker. No barriers to communication noted, The patient speaks fluent German. - Family history: Not pertinent. - : The pt / caregiver states he / she is not on anticoagulants. Home medication list is obtained from the patient. - Exposure Risk Screening:: None identified. Vital Signs: 06/07 19:31 BP 237 / 118; Pulse 78; Resp 20 S; Temp 97.5(O); Pulse Ox 98% on R/A; Weight 79.38 kg / dd6 175 lbs (R); Height 5 ft. 8 in. (172.72 cm) (R); 21:00 BP 213 / 104 LA Supine (auto/reg); Pulse 82 MON; Resp 22 S; Temp 99.0(TE); Pulse Ox 98% cln on R/A; Pain 8/10; 21:40 BP 196 / 100; Pulse 77; Resp 16; Pain 1/10; cz 22:49 BP 185 / 88; Pulse 71; Resp 16; Pain 1/10; cz 22:50 BP 185 / 88; Pulse 71; Resp 16; Pain 1/10; cz 06/08 01:33 BP 148 / 72; Pulse 82; Resp 18; Temp 98.3(TE); Pulse Ox 93% on R/A; Pain 0/10; cp1 06/07 19:31 Body Mass Index 26.61 (79.38 kg, 172.72 cm) dd6 MDM: 06/07 20:26 IV Saline Lock ordered. cs11 20:26 NS 0.9% 1000 ml IV at bolus once ordered. cs11 20:26 ketorolac 30 mg IVP once ordered. cs11 20:26 CBC with Diff Ordered. EDMS 20:26 MED Profile Ordered. EDMS 20:26 Liver Profile Ordered. EDMS 20:26 Urinalysis Ordered. EDMS 20:26 Urine Culture Ordered. EDMS 20:26 Lipase Ordered. EDMS 20:26 Amylase Ordered. EDMS 20:57 Dilaudid - HYDROmorphone 1 mg IVP once ordered. jun 07: Financial registration complete. zo 20:58 [facility] [place] Payment Agreement was scanned into [employer] and attached to record. zo 21:43 CBC with Diff Reviewed. cs11 21:43 MED Profile Reviewed. cs11 21:43 Liver Profile Reviewed. cs11 21:43 Urinalysis Reviewed. cs11 21:43 Amylase Reviewed. cs11 21:43 Lipase Reviewed. cs11 21:44 Atenolol 25 mg PO once ordered. cs11 21:46 CT ABD & PELVIS: No Contrast Ordered. EDMS 06/08 01:15 CT ABD & PELVIS: No Contrast Reviewed. cs11 12:03 T-Sheet-- Draft Copy was scanned into [employer] and attached to record. gb 12:03 Radiology Report was scanned into [employer] and attached to record. gb Administered Medications: 06/07 20:39 Drug: ketorolac 30 mg [ketorolac 30 mg/mL (1 mL) injection solution (1 mL)] Route: IVP; cz Site: right antecubital; 06/08 01:36 Follow up: Response: Pain is decreased cp1 06/07 20:41 Drug: NS 0.9% 1000 ml [sodium chloride 0.9 % intravenous solution] Route: IV; Rate: cz bolus; Site: right antecubital; 06/08 01:36 Follow up: IV Status: Completed infusion cp1 06/07 21:00 Drug: Dilaudid - HYDROmorphone 1 mg [hydromorphone 1 mg/mL injection syringe (1 mL)] cz Route: IVP; Site: right forearm; 21:40 Follow up: BP 196 / 100; Pulse 77 bpm; Resp 16 bpm; Pain 05/28 Adult cz 21:48 Drug: Atenolol 25 mg [atenolol 25 mg tablet (1 tabs)] Route: PO; cz 22:49 Follow up: BP 185 / 88; Pulse 71 bpm; Resp 16 bpm; Pain 05/28 Adult cz 06/08 01:36 Follow up: Response: Blood pressure is improved cp1 Signatures: Dispatcher [employer] EDMS Madisyn Funes RN RN jan Zecher, Calvin, RN RN cz Apurva Hidalgo, Reg Reg gb Alexa Greenberg Rosemary, RN RN rs3 Olesya Lemus,TABLE TOP TILE SETTER TABLE TOP TILE SETTER cp1 Judah Munguia DO DO cs11 The chart was reviewed and I authenticate all verbal orders and agree with the evaluation and treatment provided.Attachments: 06/07 20:58 [facility] Payment Agreement zo 06/08 12:03 T-Sheet-- Draft Copy gb Chart Complete MTDD
--- NOTE | 2016-06-10 02:37 | EDDOCDS ---
Physician Documentation [facility] Name: Sathya Presley Age: 56 yrs Sex: Male : 1960 Arrival Date: 06/07/2016 Time: 19:30 Bed I Private MD: Henri Mcintyre [facility] Disposition: 06/08/16 01:18 Discharged to Home/Self Care. Impression: Low back pain. - Condition is Stable. - Prescriptions for Tramadol 50 mg Oral Tablet - take 0.5 tablet by ORAL route 4 times per day MDD: 2 tabs; 10 tablet. - Medication Reconciliation, Local Pharmacy Hours form. - Follow up: Henri Mcintyre; When: Call to arrange an appointment; Reason: Recheck today's complaints. - Problem is new. - Symptoms have improved. Historical: - Allergies: no known allergies; - Home Meds: 1. atenolol 25 mg Oral tab 1 tab once daily - PMHx: Hypertension; - PSHx: skin cancer excision; - Social history: Smoking status: Patient uses tobacco products, heavy tobacco smoker. No barriers to communication noted, The patient speaks fluent Telugu. - Family history: Not pertinent. - : The pt / caregiver states he / she is not on anticoagulants. Home medication list is obtained from the patient. - Exposure Risk Screening:: None identified. Vital Signs: 06/07 19:31 BP 237 / 118; Pulse 78; Resp 20 S; Temp 97.5(O); Pulse Ox 98% on R/A; Weight 79.38 kg / dd6 175 lbs (R); Height 5 ft. 8 in. (172.72 cm) (R); 21:00 BP 213 / 104 LA Supine (auto/reg); Pulse 82 MON; Resp 22 S; Temp 99.0(TE); Pulse Ox 98% cln on R/A; Pain 8/10; 21:40 BP 196 / 100; Pulse 77; Resp 16; Pain 1/10; cz 22:49 BP 185 / 88; Pulse 71; Resp 16; Pain 1/10; cz 22:50 BP 185 / 88; Pulse 71; Resp 16; Pain 1/10; cz 06/08 01:33 BP 148 / 72; Pulse 82; Resp 18; Temp 98.3(TE); Pulse Ox 93% on R/A; Pain 0/10; cp1 06/07 19:31 Body Mass Index 26.61 (79.38 kg, 172.72 cm) dd6 MDM: 06/07 20:26 IV Saline Lock ordered. cs11 20:26 NS 0.9% 1000 ml IV at bolus once ordered. cs11 20:26 ketorolac 30 mg IVP once ordered. cs11 20:26 CBC with Diff Ordered. EDMS 20:26 MED Profile Ordered. EDMS 20:26 Liver Profile Ordered. EDMS 20:26 Urinalysis Ordered. EDMS 20:26 Urine Culture Ordered. EDMS 20:26 Lipase Ordered. EDMS 20:26 Amylase Ordered. EDMS 20:57 Dilaudid - HYDROmorphone 1 mg IVP once ordered. jun 07: Financial registration complete. zo 20:58 [facility] [place] Payment Agreement was scanned into [employer] and attached to record. zo 21:43 CBC with Diff Reviewed. cs11 21:43 MED Profile Reviewed. cs11 21:43 Liver Profile Reviewed. cs11 21:43 Urinalysis Reviewed. cs11 21:43 Amylase Reviewed. cs11 21:43 Lipase Reviewed. cs11 21:44 Atenolol 25 mg PO once ordered. cs11 21:46 CT ABD & PELVIS: No Contrast Ordered. EDMS 06/08 01:15 CT ABD & PELVIS: No Contrast Reviewed. cs11 12:03 T-Sheet-- Draft Copy was scanned into [employer] and attached to record. gb 12:03 Radiology Report was scanned into [employer] and attached to record. gb Administered Medications: 06/07 20:39 Drug: ketorolac 30 mg [ketorolac 30 mg/mL (1 mL) injection solution (1 mL)] Route: IVP; cz Site: right antecubital; 06/08 01:36 Follow up: Response: Pain is decreased cp1 06/07 20:41 Drug: NS 0.9% 1000 ml [sodium chloride 0.9 % intravenous solution] Route: IV; Rate: cz bolus; Site: right antecubital; 06/08 01:36 Follow up: IV Status: Completed infusion cp1 06/07 21:00 Drug: Dilaudid - HYDROmorphone 1 mg [hydromorphone 1 mg/mL injection syringe (1 mL)] cz Route: IVP; Site: right forearm; 21:40 Follow up: BP 196 / 100; Pulse 77 bpm; Resp 16 bpm; Pain 05/28 Adult cz 21:48 Drug: Atenolol 25 mg [atenolol 25 mg tablet (1 tabs)] Route: PO; cz 22:49 Follow up: BP 185 / 88; Pulse 71 bpm; Resp 16 bpm; Pain 05/28 Adult cz 06/08 01:36 Follow up: Response: Blood pressure is improved cp1 Signatures: Dispatcher [employer] EDMS Madisyn Funes RN RN jan Zecher, Calvin, RN RN cz Apurva Hidalgo, Reg Reg gb Alexa Greenberg Rosemary, RN RN rs3 Olesya Lemus,COOK SAUCE COOK SAUCE cp1 Judah Munguia DO DO cs11 The chart was reviewed and I authenticate all verbal orders and agree with the evaluation and treatment provided.Attachments: 06/07 20:58 [facility] [place] Payment Agreement zo 06/08 12:03 T-Sheet-- Draft Copy gb Chart Complete MTDD
== END 2016-06-08 01:36 | disposition home or self-care (01) ==
LOC: M ED 19:30
DX: M54.9 Dorsalgia, unspecified (principal); I10 Essential (primary) hypertension; F17.200 Nicotine dependence, unspecified, uncomplicated; Z79.899 Other long term (current) drug therapy
CPT/HCPCS: 74176; 80048; 80076; 81001; 82150; 83690; 85025; 87086; 96361; 96374; 96375; 99284; J1170; J1885

== ENCOUNTER → 2016-06-25 | Outpatient (CLI) | payer BC ==
[2016-06-25 13:04] LABS: BASO # 0.1 K/mm3 (0.0-0.2); BASO % 0.7 % (0.0-1.0); EOS # 0.3 K/mm3 (0.0-0.50); EOS % 3.2 % (0.0-3.0); LARGE UNSTAINED CELL # 0.1 K/mm3 (0.0-0.4); LARGE UNSTAINED CELL % 1.5 % (0.0-4.0); LYMPH # 1.6 K/mm3 (1.5-4.5); LYMPH % 19.2 % (24.0-44.0); MEAN CORPUSCULAR HEMOGLOBIN 29.1 pg (27.0-33.0); MEAN CORPUSCULAR HGB CONC 33.3 g/dl (32.0-36.5); MEAN CORPUSCULAR VOLUME 87.5 fl (80.0-96.0); MONO # 0.4 K/mm3 (0.0-0.8); MONO % 5.5 % (0.0-5.0); NEUTROPHILS # 5.6 K/mm3 (1.8-7.7); NEUTROPHILS % 69.8 % (36.0-66.0); PLATELET COUNT, AUTOMATED 297 k/mm3 (150-450); RED CELL DISTRIBUTION WIDTH 12.5 % (11.5-14.5)
== END ==
LOC: M LAB 11:32
PROVIDERS: ATTEND Nurse Practitioner Family
DX: R10.9 Unspecified abdominal pain (principal)

== ENCOUNTER → 2017-10-03 | Outpatient (CLI) | payer BC ==
[2017-10-03 08:04] LABS: BASO # 0.1 10^3/uL (0.0-0.2); BASO % 0.7 % (0.0-1.0); EOS # 0.3 10^3/uL (0.0-0.50); EOS % 4.3 % (0.0-3.0); HEMATOCRIT 46.1 % (42.0-52.0); IMMATURE GRANULOCYTE % 0.4 % (0-3.0); LYMPH # 1.5 10^3/uL (1.5-4.5); LYMPH % 22.7 % (24.0-44.0); MEAN CORPUSCULAR HEMOGLOBIN 27.9 pg (27.0-33.0); MEAN CORPUSCULAR HGB CONC 32.5 g/dl (32.0-36.5); MEAN CORPUSCULAR VOLUME 85.7 fl (80.0-96.0); MONO # 0.6 10^3/uL (0.0-0.8); MONO % 8.6 % (0.0-5.0); NEUTROPHILS # 4.2 10^3/uL (1.8-7.7); NEUTROPHILS % 63.3 % (36.0-66.0); PLATELET COUNT, AUTOMATED 305 10^3/uL (150-450); RED BLOOD COUNT 5.38 10^6/uL (4.30-6.10); RED CELL DISTRIBUTION WIDTH 13.1 % (11.5-14.5); WHITE BLOOD COUNT 6.7 10^3/uL (4.0-10.0)
[2017-10-03 08:22] LABS: ALBUMIN 3.9 GM/DL (3.2-5.2); ALKALINE PHOSPHATASE 98 U/L (45-117); ALT/SGPT 18 U/L (12-78); ANION GAP 5 MEQ/L (8-16); AST/SGOT 16 U/L (7-37); BILIRUBIN,TOTAL 0.6 MG/DL (0.2-1.0); BLOOD UREA NITROGEN 21 MG/DL (7-18); CARBON DIOXIDE LEVEL 29 MEQ/L (21-32); CHLORIDE LEVEL 109 MEQ/L (98-107); CHOLESTEROL LEVEL 250 MG/DL (<200); CHOLESTEROL RISK RATIO 5.102 (<5); CREATININE FOR GFR 1.26 MG/DL (0.70-1.30); GLOMERULAR FILTRATION RATE > 60.0 (>56); GLUCOSE, FASTING 102 MG/DL (70-100); HDL CHOLESTEROL 49 MG/DL (>40); NON-HDL-C 201 MG/DL; POTASSIUM SERUM 4.4 MEQ/L (3.5-5.1); SODIUM LEVEL 143 MEQ/L (136-145); TOTAL PROTEIN 7.8 GM/DL (6.4-8.2); TRIGLYCERIDES LEVEL 110 MG/DL (<150)
[2017-10-04 15:10] LABS: PSA TOTAL 1.1 ng/mL (0.0-4.0)
== END ==
LOC: M LAB 07:24
DX: I10 Essential (primary) hypertension (principal); Z12.5 Encounter for screening for malignant neoplasm of prostate; E78.5 Hyperlipidemia, unspecified
CPT/HCPCS: 80053

== ENCOUNTER → 2018-09-28 | Outpatient (CLI) | payer BC ==
[2018-09-28 09:40] LABS: BASO # 0.1 10^3/uL (0.0-0.2); BASO % 0.9 % (0.0-1.0); EOS # 0.3 10^3/uL (0.0-0.50); HEMATOCRIT 44.8 % (42.0-52.0); HEMOGLOBIN 14.4 g/dl (13.5-17.5); LYMPH # 1.5 10^3/uL (1.5-4.5); LYMPH % 18.2 % (24.0-44.0); MEAN CORPUSCULAR HEMOGLOBIN 28.3 pg (27.0-33.0); MEAN CORPUSCULAR HGB CONC 32.1 g/dl (32.0-36.5); MONO # 0.6 10^3/uL (0.0-0.8); MONO % 7.5 % (0.0-5.0); NEUTROPHILS # 5.6 10^3/uL (1.8-7.7); NEUTROPHILS % 69.2 % (36.0-66.0); PLATELET COUNT, AUTOMATED 281 10^3/uL (150-450); RED BLOOD COUNT 5.09 10^6/uL (4.30-6.10); WHITE BLOOD COUNT 8.2 10^3/uL (4.0-10.0)
[2018-09-28 10:02] LABS: ALBUMIN 3.7 GM/DL (3.2-5.2); ALT/SGPT 21 U/L (12-78); BILIRUBIN,TOTAL 0.8 MG/DL (0.2-1.0); BLOOD UREA NITROGEN 20 MG/DL (7-18); CALCIUM LEVEL 8.8 MG/DL (8.5-10.1); CARBON DIOXIDE LEVEL 30 MEQ/L (21-32); CHLORIDE LEVEL 109 MEQ/L (98-107); CHOLESTEROL LEVEL 160 MG/DL (<200); CHOLESTEROL RISK RATIO 3.137 (<5); CREATININE FOR GFR 1.13 MG/DL (0.70-1.30); GLOMERULAR FILTRATION RATE > 60.0 (>56); GLUCOSE, FASTING 109 MG/DL (70-100); HDL CHOLESTEROL 51 MG/DL (>40); LDL CHOLESTEROL 90 MG/DL (<100); NON-HDL-C 109 MG/DL; POTASSIUM SERUM 4.8 MEQ/L (3.5-5.1); SODIUM LEVEL 141 MEQ/L (136-145); TRIGLYCERIDES LEVEL 97 MG/DL (<150)
== END ==
LOC: M LAB 08:57
PROVIDERS: ATTEND Nurse Practitioner Family
DX: I10 Essential (primary) hypertension (principal); E78.5 Hyperlipidemia, unspecified

== ENCOUNTER → 2019-01-29 | Outpatient (CLI) | payer BC ==
--- NOTE | 2019-01-29 14:05 | REP ---
Low-dose lung cancer screening CT Indication: COPD, nicotine dependence. Comparison: None Technique: Axial low-dose CT of the chest was performed and reviewed in lung reformatted images only. No intravenous contrast was administered. Findings: There is mild pleural parenchymal scarring with nodularity at the lung apices. There is a 4 mm noncalcified nodule within the right lower lobe near the diaphragm on image 79. There is mild diffuse peribronchial thickening. There is no pleural thickening or effusion. Heart size is normal. Note is made coronary artery and thoracic aortic calcification. There is no pericardial effusion. There are small mediastinal lymph nodes. There is no axillary lymphadenopathy. There is no suspicious focal osseous lesion. Impression: Lung-RADS 2. Continue annual screening with low-dose CT in 12 months. Electronically Signed by Marco David MD 01/29/2019 01:56 P
== END ==
LOC: M RAD 12:51
PROVIDERS: ATTEND Physician Assistant Medical
DX: F17.210 Nicotine dependence, cigarettes, uncomplicated (principal); I10 Essential (primary) hypertension; J44.9 Chronic obstructive pulmonary disease, unspecified

== ENCOUNTER → 2019-06-01 | Outpatient (CLI) | payer BC ==
[2019-06-01 07:38] LABS: BASO # 0.1 10^3/uL (0.0-0.2); BASO % 0.9 % (0.0-1.0); EOS # 0.3 10^3/uL (0.0-0.5); EOS % 4.4 % (0.0-3.0); HEMATOCRIT 44.8 % (42.0-52.0); HEMOGLOBIN 14.7 g/dl (13.5-17.5); LYMPH # 1.9 10^3/uL (1.5-5.0); LYMPH % 24.2 % (24.0-44.0); MEAN CORPUSCULAR HEMOGLOBIN 29.1 pg (27.0-33.0); MEAN CORPUSCULAR HGB CONC 32.8 g/dl (32.0-36.5); MEAN CORPUSCULAR VOLUME 88.5 fl (80.0-96.0); MONO # 0.6 10^3/uL (0.0-0.8); MONO % 8.1 % (0.0-5.0); NEUTROPHILS # 4.8 10^3/uL (1.5-8.5); NEUTROPHILS % 62.1 % (36.0-66.0); PLATELET COUNT, AUTOMATED 273 10^3/uL (150-450); RED BLOOD COUNT 5.06 10^6/uL (4.30-6.10); WHITE BLOOD COUNT 7.7 10^3/uL (4.0-10.0)
[2019-06-01 08:13] LABS: ALBUMIN 3.8 GM/DL (3.2-5.2); BILIRUBIN,TOTAL 0.8 MG/DL (0.2-1.0); CALCIUM LEVEL 9.3 MG/DL (8.5-10.1); CHOLESTEROL RISK RATIO 3.688 (<5); CREATININE FOR GFR 1.31 MG/DL (0.70-1.30); GLOMERULAR FILTRATION RATE 59.6 (>56); POTASSIUM SERUM 4.4 MEQ/L (3.5-5.1); TOTAL PROTEIN 7.4 GM/DL (6.4-8.2)
== END ==
LOC: M LAB 07:08
PROVIDERS: ATTEND Physician Assistant Medical
DX: I10 Essential (primary) hypertension (principal)

== ENCOUNTER → 2020-06-28 | Outpatient (CLI) | payer BC ==
[2020-06-28 10:17] LABS: HEMOGLOBIN A1c 6.4 %
[2020-06-28 10:24] LABS: BLOOD UREA NITROGEN 24 MG/DL (7-18); CREATININE FOR GFR 1.18 MG/DL (0.70-1.30); GLUCOSE, FASTING 186 MG/DL (70-100)
[2020-06-28 10:25] LABS: CALCIUM LEVEL 8.9 MG/DL (8.8-10.2); CARBON DIOXIDE LEVEL 27 MEQ/L (21-32); CHLORIDE LEVEL 105 MEQ/L (98-107); GLOMERULAR FILTRATION RATE > 60.0 (>49); POTASSIUM SERUM 4.6 MEQ/L (3.5-5.1); SODIUM LEVEL 139 MEQ/L (136-145)
== END ==
LOC: M WUC 08:25
PROVIDERS: ATTEND Physician Assistant Medical
DX: I10 Essential (primary) hypertension (principal)

== ENCOUNTER → 2021-01-31 | Outpatient (CLI) | payer BC ==
[2021-01-31 09:16] LABS: ALBUMIN 3.5 GM/DL (3.2-5.2); ALT/SGPT 23 U/L (12-78); BILIRUBIN,TOTAL 0.5 MG/DL (0.2-1.0); BLOOD UREA NITROGEN 16 MG/DL (7-18); CALCIUM LEVEL 9.1 MG/DL (8.8-10.2); CARBON DIOXIDE LEVEL 28 MEQ/L (21-32); CHLORIDE LEVEL 109 MEQ/L (98-107); CHOLESTEROL LEVEL 179 MG/DL (<200); CHOLESTEROL RISK RATIO 3.653 (<5); CREATININE FOR GFR 1.17 MG/DL (0.70-1.30); GLOMERULAR FILTRATION RATE > 60.0 (>49); GLUCOSE, FASTING 156 MG/DL (70-100); HDL CHOLESTEROL 49 MG/DL (>40); LDL CHOLESTEROL 96 MG/DL (<100); NON-HDL-C 130 MG/DL; POTASSIUM SERUM 4.4 MEQ/L (3.5-5.1); SODIUM LEVEL 140 MEQ/L (136-145); TRIGLYCERIDES LEVEL 171 MG/DL (<150)
[2021-01-31 10:51] LABS: HEMOGLOBIN A1c 6.6 %
== END ==
LOC: M LAB 08:01
PROVIDERS: ATTEND Physician Assistant Medical
DX: E78.5 Hyperlipidemia, unspecified (principal); R73.01 Impaired fasting glucose

== ENCOUNTER → 2022-02-05 | Outpatient (CLI) | payer BC ==
[2022-02-05 10:44] LABS: HEMOGLOBIN A1c 6.2 %
[2022-02-05 11:48] LABS: MAU/CREAT RATIO 113.3 MCG/MG (0.0-30.0)
[2022-02-05 11:51] LABS: ALT/SGPT 16 U/L (12-78); BILIRUBIN,TOTAL 0.7 MG/DL (0.2-1.0); BLOOD UREA NITROGEN 17 MG/DL (7-18); CALCIUM LEVEL 9.7 MG/DL (8.8-10.2); CARBON DIOXIDE LEVEL 31 MEQ/L (21-32); CHLORIDE LEVEL 105 MEQ/L (98-107); CHOLESTEROL LEVEL 185 MG/DL (<200); CHOLESTEROL RISK RATIO 3.303 (<5); CREATININE FOR GFR 1.18 MG/DL (0.70-1.30); GLOMERULAR FILTRATION RATE > 60.0 (>49); GLUCOSE, FASTING 98 MG/DL (70-100); HDL CHOLESTEROL 56 MG/DL (>40); LDL CHOLESTEROL 107 MG/DL (<100); NON-HDL-C 129 MG/DL; POTASSIUM SERUM 4.5 MEQ/L (3.5-5.1); SODIUM LEVEL 138 MEQ/L (136-145); TRIGLYCERIDES LEVEL 110 MG/DL (<150)
== END ==
LOC: M LAB 09:58
PROVIDERS: ATTEND Nurse Practitioner Family
DX: E78.5 Hyperlipidemia, unspecified (principal); E11.9 Type 2 diabetes mellitus without complications; I10 Essential (primary) hypertension

== ENCOUNTER → 2022-02-28 | Outpatient (CLI) | payer BC | LOC: M RAD 07:08 | PROVIDERS: ATTEND Nurse Practitioner Family | DX: Z12.2 Encounter for screening for malignant neoplasm of respiratory organs (principal); F17.210 Nicotine dependence, cigarettes, uncomplicated ==

== ENCOUNTER → 2023-04-15 | Outpatient (CLI) | payer OTHER | LOC: M RAD 07:37 | PROVIDERS: ATTEND Nurse Practitioner Family | DX: Z12.2 Encounter for screening for malignant neoplasm of respiratory organs (principal); F17.210 Nicotine dependence, cigarettes, uncomplicated; J47.9 Bronchiectasis, uncomplicated; R91.8 Other nonspecific abnormal finding of lung field ==

== ENCOUNTER → 2023-09-09 | Outpatient (CLI) | payer OTHER ==
[2023-09-09 11:12] LABS: BLOOD UREA NITROGEN 17 MG/DL (9-23); CALCIUM LEVEL 9.6 MG/DL (8.3-10.6); CARBON DIOXIDE LEVEL 29 MMOL/L (20-31); CHLORIDE LEVEL 105 MMOL/L (98-107); CREATININE FOR GFR 1.24 MG/DL (0.70-1.30); GLOMERULAR FILTRATION RATE > 60.0 (>49); GLUCOSE, FASTING 119 MG/DL (74-106); POTASSIUM SERUM 4.5 MMOL/L (3.5-5.1); SODIUM LEVEL 139 MMOL/L (136-145)
[2023-09-09 11:38] LABS: HEMOGLOBIN A1c 6.5 % (4.0-6.0)
== END ==
LOC: M LAB 09:58
PROVIDERS: ATTEND Nurse Practitioner Family
DX: E11.9 Type 2 diabetes mellitus without complications (principal); I10 Essential (primary) hypertension

== ENCOUNTER → 2024-09-03 | Outpatient (CLI) | payer OTHER | LOC: M RAD 13:27 | PROVIDERS: ATTEND Nurse Practitioner Family | DX: Z87.891 Personal history of nicotine dependence (principal); Z12.2 Encounter for screening for malignant neoplasm of respiratory organs; J47.9 Bronchiectasis, uncomplicated; R91.8 Other nonspecific abnormal finding of lung field; J43.2 Centrilobular emphysema; I25.10 Atherosclerotic heart disease of native coronary artery without angina pectoris; I70.0 Atherosclerosis of aorta ==

== ENCOUNTER → 2025-02-25 | Outpatient (CLI) | payer OTHER | LOC: M RAD 16:19 | PROVIDERS: ATTEND Nurse Practitioner Family | DX: R91.8 Other nonspecific abnormal finding of lung field (principal); J47.9 Bronchiectasis, uncomplicated; I25.10 Atherosclerotic heart disease of native coronary artery without angina pectoris ==

== ENCOUNTER → 2025-03-22 | Outpatient (CLI) | payer OTHER ==
[2025-03-22 09:50] LABS: BASO # 0.1 10^3/uL (0.0-0.2); BASO % 1.1 % (0.0-1.0); EOS # 0.3 10^3/uL (0.0-0.5); EOS % 3.9 % (0.0-3.0); LYMPH # 1.4 10^3/uL (1.5-5.0); LYMPH % 19.4 % (24.0-44.0); MONO # 0.7 10^3/uL (0.0-0.8); MONO % 9.8 % (2.0-8.0); NEUTROPHILS # 4.7 10^3/uL (1.5-8.5); NEUTROPHILS % 65.5 % (36.0-66.0); PLATELET COUNT, AUTOMATED 344 10^3/uL (150-450)
[2025-03-22 10:14] LABS: PSA SCREENING 1.52 NG/ML (< 4.00)
[2025-03-22 10:17] LABS: ALT/SGPT 18.0 U/L (7.0-40); AST/SGOT 20.0 U/L (<34); CALCIUM LEVEL 9.6 MG/DL (8.3-10.6); CARBON DIOXIDE LEVEL 28.0 MMOL/L (20-31); CHLORIDE LEVEL 105.0 MMOL/L (98-107); CHOLESTEROL LEVEL 200.0 MG/DL (<200); CHOLESTEROL RISK RATIO 3.72 (<5); CREATININE FOR GFR 1.26 MG/DL (0.70-1.30); GLOMERULAR FILTRATION RATE 63.3 (>49); LDL CHOLESTEROL 118.5 MG/DL (<100); NON-HDL-C 146.3 MG/DL; POTASSIUM SERUM 4.5 MMOL/L (3.5-5.1); SODIUM LEVEL 140.0 MMOL/L (136-145); TRIGLYCERIDES LEVEL 139.0 MG/DL (<150)
[2025-03-22 10:30] LABS: ESTIMATED AVERAGE GLUCOSE 183.0 MG/DL (60-110)
== END ==
LOC: M LAB 09:15
PROVIDERS: ATTEND Nurse Practitioner Family
DX: E11.9 Type 2 diabetes mellitus without complications (principal); I10 Essential (primary) hypertension; E78.5 Hyperlipidemia, unspecified; R31.9 Hematuria, unspecified
CPT/HCPCS: 36415; 80053; 80061; 83036; 85025; 87086; G0103

== ENCOUNTER → 2025-04-12 | Outpatient (REF) | payer OTHER ==
[2025-04-12 17:43] LABS: APPEARANCE, URINE CLOUDY (CLEAR); BACTERIA, URINE AUTO NEGATIVE (NEGATIVE); BILIRUBIN, URINE AUTO NEGATIVE (NEGATIVE); BLOOD, URINE BLOOD 3+ (NEGATIVE); GLUCOSE, URINE (UA) AUTO NEGATIVE (NEGATIVE); KETONE, URINE AUTO TRACE mg/dL (NEGATIVE); LEUKOCYTE ESTERASE, URINE AUTO NEGATIVE (NEGATIVE); MUCUS, URINE MODERATE (NEGATIVE); NITRITE, URINE AUTO NEGATIVE (NEGATIVE); PROTEIN, URINE AUTO 2+ mg/dL (NEGATIVE); RBC, URINE AUTO TNTC /HPF (0-3); SPECIFIC GRAVITY URINE AUTO 1.021 (1.002-1.035); SQUAMOUS EPITHELIAL CELL UR AU 0 /HPF (0-6); UROBILINOGEN, URINE AUTO 0.2 mg/dL (0.0-2.0); WBC, URINE AUTO 34 /HPF (0-3)
== END ==
LOC: M SMT 17:07
PROVIDERS: ATTEND Urology
DX: R31.0 Gross hematuria (principal)

== ENCOUNTER → 2025-05-10 | Outpatient (CLI) | payer OTHER ==
[2025-05-10 08:30] LABS: PLATELET COUNT, AUTOMATED 353 10^3/uL (150-450)
[2025-05-10 08:51] LABS: INR 0.88
[2025-05-10 08:57] LABS: ALT/SGPT 14.0 U/L (7.0-40); AST/SGOT 19.0 U/L (<34); CALCIUM LEVEL 8.9 MG/DL (8.3-10.6); CARBON DIOXIDE LEVEL 30.0 MMOL/L (20-31); CHLORIDE LEVEL 107.0 MMOL/L (98-107); CREATININE FOR GFR 1.22 MG/DL (0.70-1.30); GLOMERULAR FILTRATION RATE 65.8 (>49); POTASSIUM SERUM 4.6 MMOL/L (3.5-5.1); SODIUM LEVEL 141.0 MMOL/L (136-145)
== END ==
LOC: M LAB 07:51
PROVIDERS: ATTEND Urology
DX: R31.0 Gross hematuria (principal)

== ENCOUNTER → 2025-05-17 | Outpatient (CLI) | payer OTHER ==
[~2025-05-17] MED LIST changes: +ISOVUE-370 76% 100 ML VIAL As Ordered ONE
== END ==
LOC: M RAD 11:13
PROVIDERS: ATTEND Urology
DX: R31.0 Gross hematuria (principal)